=== PATIENT | male | born 1960 | race Caucasian/White ===

== ENCOUNTER 2020-08-17 17:24 | Emergency (ER) | payer MEDICARE, SELFPAY ==
[2020-08-17] VITALS (8 sets, daily range): BP systolic 106–149; BP diastolic 78–99; PULSE 92–113; RESP 15–22; TEMP 36.9; O2SAT 91–96; BMI 17.7
--- NOTE | 2020-08-17 17:56 | XR_ITS ---
WS: [id number] Portable AP upright chest, 08/17/2020 Clinical Data: sob Comparison: Portable chest, 04/18/2019. Findings: No nodules, masses or effusions are seen. The heart is normal. The pulmonary vascularity is not increased. No pneumonia or pneumothorax is seen. Minimal patchy atelectasis is noted over the burns rface of the diaphragms. The diaphragms are flattened. Monitor leads are on the chest wall. XR/XR chest 1V portable [id number] Impression: Hyperinflation and minimal bibasilar atelectasis.
--- NOTE | 2020-08-17 17:57 | ECG_ITS ---
[facility] Test Date: 2020-08-17 Pat Name: Abilio Peck Department: Room: Gender: Male Materials Coordinator: : 1960 Requested By: Suni Lambert I Order Number: [id number] Maeve MD: Jennifer Murillo M.D. Measurements Intervals [place] Rate: 99 P: 67 [place]: 163 QRS: -57 QRSD: 80 T: 65 QT: 347 QTc: 446 Interpretive Statements SINUS RHYTHM WITH MARKED SINUS ARRHYTHMIA LEFT ANTERIOR FASCICULAR BLOCK [QRS AXIS <= -45, QR IN I, RS IN II] WARNING: DATA QUALITY MAY AFFECT INTERPRETATION INTERPRETATION BASED ON A DEFAULT AGE OF 40 YEARS Compared to ECG 04/19/2019 11:59:25 Left anterior fascicular block now present Sinus tachycardia no longer present Left-axis deviation no longer present Electronically Signed On 08-17-2020 19:16:47 LINESPERSON by Jennifer Murillo M.D. [id number]
[2020-08-17 18:33] LABS: Basophils % 0.4 %; Eosinophils % 0.4 %; Hematocrit 49.1 % (42.0-52.0); Hemoglobin 15.9 g/dL (11.7-16.6); Lymphocytes # 0.7 10^3/uL (0.8-4.8); Mean Corpuscular HGB Conc 32.4 g/dL (30.0-36.0); Mean Corpuscular Hemoglobin 27.8 pg (28.0-34.0); Mean Corpuscular Volume 85.8 fL (80-94); Mean Platelet Volume 11.9 fL (7.4-10.4); Monocytes # 0.6 10^3/uL (0.2-0.9); Monocytes % 7.1 %; Neutrophils # 7.03 10^3/uL (1.8-7.7); Neutrophils % 82.9 %; Nucleated Red Blood Cells % 0 %; Platelet Count 209 10^3/cmm (130-400); Red Blood Count 5.72 10^6/uL (4.1-5.3); Red Cell Distribution Width 15.2 % (12.1-15.1); White Blood Count 8.5 10^3/uL (4.0-10.0)
[2020-08-17 18:50] LABS: INR 1.17 (0.8-1.2)
[2020-08-17 18:53] LABS: D Dimer 0.73 ug/mIFEU (0-0.59)
[2020-08-17 18:55] LABS: ABG PCO2 49.7 mmHg (35-45); ABG PH Result 7.43 (7.35-7.45); Alveolar-Arterial Oxygen Gradi 10.5 mmHg (5-10); Arterial Blood Gas Hematocrit 50.1 % (42-52); Base Excess ABG 7.2 mmol/L (-2.0-2.0); Blood Gas Allen Test Pos; Blood Gas Operator Identificat GD; Blood Gas Sample Site Radial, left; Blood Gas Sample Type Arterial; HCO3 ABG 33.1 mmol/L (22-26); HGB O2 Sat 94.8 % (95-100); Methemoglobin 0.8 % (0.4-1.5); Oxygen Device NC; Oxygen Saturation ABG 96.5; PO2 ABG 84.9 mmHg (80.0-100.0); Potassium Level - ABG 3.5 mmol/L (3.5-5.0); Total Hemoglobin 16.3 g/dL (14-18)
[2020-08-17 18:56] LABS: Lactic Sepsis W/Reflex 1.1 mmol/L (0.5-2.2)
[2020-08-17 18:57] LABS: Troponin(5th) Baseline 16 ng/L (0-15)
--- NOTE | 2020-08-17 19:05 | PC.NURSE ---
patient report recieved from DIAN Anguiano and care transferred to DIAN Gautam
[2020-08-17 19:06] LABS: Alanine Aminotransferase 8 U/L (0-41); Albumin Level 3.5 g/dL (3.5-5.2); Alkaline Phosphatase 90 IU/L (40-130); Anion Gap 13.7 (5-19); Aspartate Amino Transferase 19 U/L (0-40); Blood Urea Nitrogen 8 mg/dL (8-23); Calcium 8.2 mg/dL (8.5-10.5); Carbon Dioxide 30 mmol/L (22-29); Chloride 88 mmol/L (98-107); Globulin 3.1 g/dL (1.3-4.6); Glomerular Filtration Rate 137.4 mL/min (90-130); Glucose 123 mg/dL (65-115); NT Pro B Type Natriuretic Pept 92 pg/mL (0-125); Osmolality Calculated 266 mOsm/kg (285-295); Potassium 3.7 mmol/L (3.5-5.1); Sodium 128 mmol/L (136-145); Total Bilirubin 0.6 mg/dL (0.15-1.2); Total Protein 6.6 g/dL (6.6-8.7)
[2020-08-17 19:27] LABS: SARS Covid-2 Antigen Positive (Negative)
[2020-08-17 19:47] LABS: Influenza A by IFA Negative (Negative); Influenza B by IFA Negative (Negative)
--- NOTE | 2020-08-17 19:57 | ECG_ITS ---
[facility] Test Date: 2020-08-17 Pat Name: Abilio Peck Department: Room: Gender: Male Shoulder Sawyer: : 1960 Requested By: Suni Lambert I Order Number: [id number] Maeve MD: Jennifer Murillo M.D. Measurements Intervals [place] Rate: 98 P: 74 [place]: 172 QRS: -60 QRSD: 80 T: 66 QT: 366 QTc: 468 Interpretive Statements SINUS RHYTHM LEFT AXIS DEVIATION [QRS AXIS < -30] Compared to ECG 08/17/2020 18:09:26 Left-axis deviation now present Sinus arrhythmia no longer present Left anterior fascicular block no longer present Electronically Signed On 08-17-2020 21:47:45 THIRD GRADE TEACHER by Jennifer Murillo M.D. [id number]
--- NOTE | 2020-08-17 20:14 | PC.NURSE ---
EKG done at 2009 and shown to ER doctor
[2020-08-17 20:38] LABS: Troponin 5 2HR 16.31 ng/L (0-15); Troponin 5 2HR Delta 0.31 ABS# (0-10)
--- NOTE | 2020-08-17 22:30 | PC.NURSE ---
patient given water and urinal
--- NOTE | 2020-08-17 23:43 | W.ED.SOB ---
HPI - SOB/Dyspnea General: Chief Complaint: Shortness of Breath/Dyspnea Stated Complaint: SOB Time Seen by Provider: 08/17/20 17:33 Source: patient, family (brother via telephone) and EMS Mode of arrival: EMS History of Present Illness: HPI Narrative: The patient is a 59-year-old male with a history of bilateral hip surgeries, otherwise unremarkable past medical history. He does not take any medications. He however is cared for by his brother. The patient is a poor historian and some of the history is obtained from him, however most of the history is obtained from his brother were called on the phone. The patient has been feeling ill for several days with worsening shortness of breath. He denies any fever or any sick contacts. The patient has been homebound for more than a year, however his brother who cares for him still goes in and out of the house and he has a trapeze artist who comes and cleans the house for him. Because of his shortness of breath he went to see his primary care provider who found him to be saturating in the low 80s on room air. They give him an albuterol breathing treatment and called for an ambulance. He was placed on oxygen at 3 L and brought to the emergency department. His brother states that about 5 days ago he was placed on oxygen but he has COPD. He said his doctor had been discussing placing him on oxygen for several months. MD elicited complaint: shortness of breath Associated symptoms: Deny abdominal pain, fever(s), nausea, palpitations, polydipsia, polyuria or vomiting Review of Systems General: Reports: 10 or more systems reviewed and unremarkable except in HPI and below Const: Denies: fever(s), chills or body aches Eyes: Denies: change in vision or blurry vision ENMT: Denies: throat pain, enlarged tonsils, odynophagia, hoarseness, mouth pain or swelling of lips/tongue Card: Denies: palpitations, irregular heart rhythm, edema or swelling of feet/ankles Resp: Reports: dyspnea; Denies: productive cough or non-productive cough GI: Denies: abdominal pain, nausea or vomiting : Denies: flank pain, dysuria, urinary frequency, urinary urgency or urinary hesitancy Musc: Denies: neck pain, back pain or extremity swelling Skin/Breast: Denies: rash, pruritus or erythema Neuro: Denies: headache(s), numbness in extremities or weakness in extremities Endo: Denies: polyuria, polydipsia or tired all the time Physical Exam Const: COMMON NORMALS: no acute distress, average body habitus, patient oriented x3, no limitations, healthy appearing, alert and well nourished HENMT: COMMON NORMALS: normocephalic, atraumatic and moist oral mucous membranes HEAD & SCALP: normocephalic and atraumatic Eye: COMMON NORMALS: Equal, round and reactive pupils present, EOMs intact bilaterally, conjunctivae normal and no scleral icterus CONJUNCTIVA: Yes conjunctivae normal PUPIL: Yes Equal, round and reactive pupils present Neck/C-Spine: COMMON NORMALS: no meningeal signs and no JVD Resp: COMMON NORMALS: normal respiratory effort, No retractions, No use of accessory muscles and percussion normal AUSCULTATION: wheezes and diminished lung sounds PERCUSSION: percussion normal Cardio: COMMON NORMALS: no JVD, regular rate, regular rhythm, S1 normal heart sound present, S2 normal heart sound present, No gallops present (Cardio), No clicks present (Cardio), No murmurs present (Cardio), No rub (Cardio) and Peripheral pulses 2+ throughout RATE: regular rate RHYTHM: regular rhythm HEART SOUNDS: S1 normal heart sound present and S2 normal heart sound present PERIPHERAL PULSES: Peripheral pulses 2+ throughout GI: COMMON NORMALS: Normal to inspection, nondistended, normoactive bowel sounds present, Soft to palpation, non-tender, No hepatosplenomegaly present, no masses and no bruits PALPATION: Yes Soft to palpation and Yes No hepatosplenomegaly present Extremity: COMMON NORMALS: normal to inspection, full ROM, capillary refill normal, no calf tenderness and no pedal edema Neuro: COMMON NORMALS: patient oriented x3 SENSORIUM/ORIENTATION: Yes alert MENINGEAL SIGNS: Yes no meningeal signs Skin: COMMON NORMALS: no rashes or lesions noted, no wounds, turgor normal, no jaundice, no petechiae and no mottling GENERAL SKIN EXAM: no rashes or lesions noted and turgor normal Course ED course: Patient remained stable on 3 lpm of oxygen in the ED. Reevaluation(s): Reevaluation #1: Discussed with the patient's brother who is his caregiver. He gave more information regarding the HPI. Time: 19:40 Vital Signs: Vital signs: Vital Signs Temperature 98.5 F 08/17/20 17:31 Pulse Rate 92 08/18/20 10:58 Respiratory Rate 18 08/18/20 10:58 Blood Pressure 108/73 08/18/20 10:58 Pulse Oximetry 94 08/18/20 10:58 MDM - SOB/Dyspnea MDM Narrative: Medical decision making narrative: Patient is a 59-year-old male who presented to the emergency department with shortness of breath. On evaluation he tested positive for COVID-19. He is hypoxic but maintaining his oxygen saturation well on 3 L/min of oxygen. Patient is stable enough to be discharged home, he unfortunately does not meet the criteria for monoclonal antibody infusion as he is requiring oxygen. I discussed treatment options with his brother who is his caregiver and he would rather not have the patient on steroids. We will therefore discharge him home with a pulse ox and he is to monitor his oxygen levels. Patient understands that he is to self isolate for at least 10 days and until he is symptom-free. He is also to return if he becomes hypoxic on oxygen Medical Records: Attestation: I reviewed the patient's medical records. Lab Data: Attestation: I reviewed the patient's lab results. Labs: Lab Results 08/17/20 08/17/20 08/17/20 Range/Units 18:13 18:13 18:13 WBC 8.5 (4.0-10.0) 10^3/ uL RBC 5.72 H (4.1-5.3) 10^6/u L Hgb 15.9 (11.7-16.6) g/dL Hct 49.1 (42.0-52.0) % MCV 85.8 (80-94) fL MCH 27.8 L (28.0-34.0) pg MCHC 32.4 (30.0-36.0) g/dL RDW 15.2 H (12.1-15.1) % Plt Count 209 (130-400) 10^3/c mm MPV 11.9 H (7.4-10.4) fL Neut % (Auto) 82.9 % Lymph % (Auto) 8.0 % [place] % (Auto) 7.1 % Eos % (Auto) 0.4 % Baso % (Auto) 0.4 % Neut # (Auto) 7.03 (1.8-7.7) 10^3/u L Lymph # (Auto) 0.7 L (0.8-4.8) 10^3/u L [place] # (Auto) 0.6 (0.2-0.9) 10^3/u L Eos # (Auto) 0.0 (0.0-0.8) 10^3/u L Baso # (Auto) 0.0 (0.0-0.1) 10^3/u L Nucleated RBC % (a uto) 0 % Nucleated RBCs # 0.0 /100WBC PT 15.30 H (12.1-14.9) SECO NDS INR 1.17 (0.8-1.2) D-Dimer 0.73 H (0-0.59) ug/mIFE U Specimen Type Sample Site ABG pH (7.35-7.45) ABG pCO2 (35-45) mmHg ABG pO2 (80.0-100.0) mmH g ABG HCO3 (22-26) mmol/L ABG O2 Saturation ABG Base Excess (-2.0-2.0) mmol/ L Kedar Test A-a O2 Gradient (5-10) mmHg Hematocrit (42-52) % Hgb O2 Saturation (95-100) % Carboxyhemoglobin (0.4-20.1) %THgb Methemoglobin (0.4-1.5) % Total Hemoglobin (14-18) g/dL Ionized Calcium (1.1-1.4) mmol/L O2 Delivery Device O2 Liters/Min % FiO2 % Entry Level Civil Engineer ID Sodium 128 L (136-145) mmol/L Potassium 3.7 (3.5-5.1) mmol/L Chloride 88 L (98-107) mmol/L Carbon Dioxide 30 H (22-29) mmol/L Anion Gap 13.7 (5-19) BUN 8 (8-23) mg/dL Creatinine 0.6 L (0.7-1.2) mg/dL GFR Calculation 137.4 H (90-130) mL/min Glucose 123 H (65-115) mg/dL Calculated Osmolal ity 266 L (285-295) mOsm/k g Lactic Acid (0.5-2.2) mmol/L Calcium 8.2 L (8.5-10.5) mg/dL Total Bilirubin 0.6 (0.15-1.2) mg/dL AST 19 (0-40) U/L ALT 8 (0-41) U/L Alkaline Phosphata se 90 (40-130) IU/L Troponin T Baselin e (0-15) ng/L Troponin T 120 Min [place] (0-15) ng/L Delta Troponin T (0-10) ABS# NT-Pro-B Natriuret Pep 92 (0-125) pg/mL Total Protein 6.6 (6.6-8.7) g/dL Albumin 3.5 (3.5-5.2) g/dL Globulin 3.1 (1.3-4.6) g/dL Influenza Type A A g (Negative) Influenza Type B A g (Negative) SARS-CoV-2 Ag (Rap id) (Negative) 08/17/20 08/17/20 08/17/20 Range/Units 18:13 18:13 18:13 WBC (4.0-10.0) 10^3/ uL RBC (4.1-5.3) 10^6/u L Hgb (11.7-16.6) g/dL Hct (42.0-52.0) % MCV (80-94) fL MCH (28.0-34.0) pg MCHC (30.0-36.0) g/dL RDW (12.1-15.1) % Plt Count (130-400) 10^3/c mm MPV (7.4-10.4) fL Neut % (Auto) % Lymph % (Auto) % [place] % (Auto) % Eos % (Auto) % Baso % (Auto) % Neut # (Auto) (1.8-7.7) 10^3/u L Lymph # (Auto) (0.8-4.8) 10^3/u L [place] # (Auto) (0.2-0.9) 10^3/u L Eos # (Auto) (0.0-0.8) 10^3/u L Baso # (Auto) (0.0-0.1) 10^3/u L Nucleated RBC % (a uto) % Nucleated RBCs # /100WBC PT (12.1-14.9) SECO NDS INR (0.8-1.2) D-Dimer (0-0.59) ug/mIFE U Specimen Type Sample Site ABG pH (7.35-7.45) ABG pCO2 (35-45) mmHg ABG pO2 (80.0-100.0) mmH g ABG HCO3 (22-26) mmol/L ABG O2 Saturation ABG Base Excess (-2.0-2.0) mmol/ L Kedar Test A-a O2 Gradient (5-10) mmHg Hematocrit (42-52) % Hgb O2 Saturation (95-100) % Carboxyhemoglobin (0.4-20.1) %THgb Methemoglobin (0.4-1.5) % Total Hemoglobin (14-18) g/dL Ionized Calcium (1.1-1.4) mmol/L O2 Delivery Device O2 Liters/Min % FiO2 % Entry Level Civil Engineer ID Sodium (136-145) mmol/L Potassium (3.5-5.1) mmol/L Chloride (98-107) mmol/L Carbon Dioxide (22-29) mmol/L Anion Gap (5-19) BUN (8-23) mg/dL Creatinine (0.7-1.2) mg/dL GFR Calculation (90-130) mL/min Glucose (65-115) mg/dL Calculated Osmolal ity (285-295) mOsm/k g Lactic Acid 1.1 (0.5-2.2) mmol/L Calcium (8.5-10.5) mg/dL Total Bilirubin (0.15-1.2) mg/dL AST (0-40) U/L ALT (0-41) U/L Alkaline Phosphata se (40-130) IU/L Troponin T Baselin e 16 H (0-15) ng/L Troponin T 120 Min [place] (0-15) ng/L Delta Troponin T (0-10) ABS# NT-Pro-B Natriuret Pep (0-125) pg/mL Total Protein (6.6-8.7) g/dL Albumin (3.5-5.2) g/dL Globulin (1.3-4.6) g/dL Influenza Type A A g (Negative) Influenza Type B A g (Negative) SARS-CoV-2 Ag (Rap id) Positive H (Negative) 08/17/20 08/17/20 08/17/20 Range/Units 18:40 19:10 20:05 WBC (4.0-10.0) 10^3/ uL RBC (4.1-5.3) 10^6/u L Hgb (11.7-16.6) g/dL Hct (42.0-52.0) % MCV (80-94) fL MCH (28.0-34.0) pg MCHC (30.0-36.0) g/dL RDW (12.1-15.1) % Plt Count (130-400) 10^3/c mm MPV (7.4-10.4) fL Neut % (Auto) % Lymph % (Auto) % [place] % (Auto) % Eos % (Auto) % Baso % (Auto) % Neut # (Auto) (1.8-7.7) 10^3/u L Lymph # (Auto) (0.8-4.8) 10^3/u L [place] # (Auto) (0.2-0.9) 10^3/u L Eos # (Auto) (0.0-0.8) 10^3/u L Baso # (Auto) (0.0-0.1) 10^3/u L Nucleated RBC % (a uto) % Nucleated RBCs # /100WBC PT (12.1-14.9) SECO NDS INR (0.8-1.2) D-Dimer (0-0.59) ug/mIFE U Specimen Type Arterial Sample Site Radial, left ABG pH 7.43 (7.35-7.45) ABG pCO2 49.7 H (35-45) mmHg ABG pO2 84.9 (80.0-100.0) mmH g ABG HCO3 33.1 H (22-26) mmol/L ABG O2 Saturation 96.5 ABG Base Excess 7.2 H (-2.0-2.0) mmol/ L Kedar Test Pos A-a O2 Gradient 10.5 H (5-10) mmHg Hematocrit 50.1 (42-52) % Hgb O2 Saturation 94.8 L (95-100) % Carboxyhemoglobin 1.0 (0.4-20.1) %THgb Methemoglobin 0.8 (0.4-1.5) % Total Hemoglobin 16.3 (14-18) g/dL Ionized Calcium 1.0 L (1.1-1.4) mmol/L O2 Delivery Device Nc O2 Liters/Min 3.0 % FiO2 32.0 % Entry Level Civil Engineer ID Gd Sodium 131.0 (136-145) mmol/L Potassium 3.5 (3.5-5.1) mmol/L Chloride (98-107) mmol/L Carbon Dioxide (22-29) mmol/L Anion Gap (5-19) BUN (8-23) mg/dL Creatinine (0.7-1.2) mg/dL GFR Calculation (90-130) mL/min Glucose 111.0 (65-115) mg/dL Calculated Osmolal ity (285-295) mOsm/k g Lactic Acid (0.5-2.2) mmol/L Calcium (8.5-10.5) mg/dL Total Bilirubin (0.15-1.2) mg/dL AST (0-40) U/L ALT (0-41) U/L Alkaline Phosphata se (40-130) IU/L Troponin T Baselin e (0-15) ng/L Troponin T 120 Min [place] 16.31 H (0-15) ng/L Delta Troponin T 0.31 (0-10) ABS# NT-Pro-B Natriuret Pep (0-125) pg/mL Total Protein (6.6-8.7) g/dL Albumin (3.5-5.2) g/dL Globulin (1.3-4.6) g/dL Influenza Type A A g Negative (Negative) Influenza Type B A g Negative (Negative) SARS-CoV-2 Ag (Rap id) (Negative) Imaging Data^: CXR: Attestation: I personally reviewed and interpreted this imaging study as follows: My impression: Bilateral pulmonary infiltrates EKG Data^: EKG 1: Attestation: I personally reviewed and interpreted this EKG as follows: EKG Interpretation Date: 08/17/20 EKG interpretation time: 18:10 Prior EKG tracings: not available for review Interpretation: Sinus rhythm with sinus arrhythmia. Heart rate 99 bpm. There is a lot of artifact in the EKG affecting the quality. No ST changes. EKG 2: Attestation: I personally reviewed and interpreted this EKG as follows: EKG Interpretation Date: 08/17/20 EKG interpretation time: 20:10 Prior EKG tracings: available for review Interpretation: Normal sinus rhythm. Heart rate 90 bpm. Left axis deviation. No ST changes. Discharge Plan Discharge Patient Disposition: Home Clinical Impression: Pneumonia due to 2019 novel coronavirus, Hypoxia, Acute exacerbation of chronic obstructive airways disease Condition: Stable Prescriptions: No Action No Known Home Medications RF: 0 Discharge Orders: Discharge ED (Routine); Ordered 08/18/20 Ordered By: Suni Lambert Other Ambulatory Orders: DME: Oxygen (Order) Location: None Selected Ordered By: Suni Lambert Discharge Diet: Usual diet Discharge Activity: Increase activity as tolerated Patient Instructions: Viral Pneumonia (ED), Hypoxia (ED) Activity Restrictions/Additional Instructions: Return for any new or worsening symptoms. Check your oxygen levels at home using the pulse oximeter, if your oxygen levels drop below 90% while on oxygen please return for evaluation. If you have any concerns of worsening illness please return for evaluation. Need to self isolate for at least 10 days from when you symptoms started. Follow-up with your primary care provider via telemedicine within 3 days Coding Level of Care Code ED Director [facility] Fwd Exam Comprehensive
[2020-08-18] VITALS (11 sets, daily range): BP systolic 108–152; BP diastolic 68–91; PULSE 77–100; RESP 18–20; O2SAT 82–96
--- NOTE | 2020-08-18 02:59 | PC.NURSE ---
patient given water by nurse
== END 2020-08-18 10:50 | disposition home or self-care (01) ==
PROVIDERS: Emergency Provider Family Medicine
DX: U07.1 COVID-19 (principal); J44.0 Chronic obstructive pulmonary disease with (acute) lower respiratory infection; J12.82 Pneumonia due to coronavirus disease 2019; J44.1 Chronic obstructive pulmonary disease with (acute) exacerbation; R09.02 Hypoxemia
CPT/HCPCS: 12345; 36415; 36600; 71045; 80051; 80053; 82330; 82805; 83605; 83880; 84484; 85025; 85378; 85610; 87040; 87426; 87804; 93005; 99284